=== PATIENT | male | born 1945 | race Caucasian/White ===

== ENCOUNTER → 2017-03-28 | Outpatient (CLI) | payer MEDICARE ==
[~2017-03-28] MED LIST: IOHEXOL 350 MG/ML 50ml INJECTION ONE; IOHEXOL 350 MG/ML 75ml INJECTION ONE; NORMAL SALINE 100 ML ONE; SALINE FLUSH 10ml SYRINGE ONE
[2017-03-28 13:24] LABS: CREATININE 0.9 MG/DL (0.8-1.5)
--- NOTE | 2017-03-28 14:46 | DI ---
Indication: ITS.REASON: I71.9 Aortic aneurysm of unspecified site, without rupture PROCEDURE: CTA AORTA: Encounter: Initial Comparison: None Technique: Axial CT angiographic imaging of the chest, abdomen and pelvis was performed before and after the administration of intravenous contrast. Coronal and sagittal MIP reconstructed images were created and reviewed. Three-dimensional surface shaded volume rendered imaging of the aorta and arterial vasculature was created by the technologist on a dedicated workstation under the direction of the interpreting radiologist and reviewed. Automated Exposure Control and Iterative Reconstruction dose reducing techniques were utilized. Contrast: 120 mL Omnipaque 350 Findings: CT angiogram of the chest with and without contrast: Noncontrast images show no evidence of intramural hematoma. Three vessel heavy coronary artery disease with significant plaque. Scattered small mediastinal lymph nodes present. Postcontrast imaging shows no evidence of aortic aneurysm or dissection. Maximal aortic diameter proximally is 3.4 cm. Mild dependent atelectasis in both lower lobes. No consolidative pneumonia, pleural effusion or pneumothorax. The central airways are patent. Heart size is borderline enlarged. No pericardial effusion. CT angiography of the abdomen and pelvis with and without contrast: There is no aortic dissection or aneurysm. Scattered atherosclerotic plaque throughout the arterial vasculature. No arterial occlusion identified. The celiac and SMA origins are patent without significant stenosis. Mild plaquing at the renal artery origins with mild stenosis at the left renal artery origin. Early bifurcation of the right renal artery. Hepatic arterial anatomy is conventional. Arterial phase liver is grossly unremarkable. Large inferior pole left renal cyst has slightly higher attenuation value than normal and could have proteinaceous debris within it but there is no evidence of enhancement between the noncontrast and postcontrast images. This measures up to 10.6 cm in diameter. Left kidney is otherwise normal. Right kidney is within normal limits. No abdominal or pelvic lymphadenopathy. The visualized bladder is unremarkable. No free fluid. No evidence of a bowel obstruction. Bone windows show mild degenerative change in the spine. Impression: CT angiography of the chest with and without contrast: No evidence of acute aortic syndrome or acute disease process seen. Heavy coronary artery plaque. Some of this could also relate to cardiac stents. CT angiography of the abdomen and pelvis with and without contrast: No evidence of abdominal aortic aneurysm, dissection or acute abnormality. Mild left renal artery stenosis. .
== END ==
LOC: IMA 12:55
PROVIDERS: ATTEND Internal Medicine Cardiovascular Disease
DX: I25.10 Atherosclerotic heart disease of native coronary artery without angina pectoris (principal); I71.9 Aortic aneurysm of unspecified site, without rupture
CPT/HCPCS: 71275; 74175; 82565; 84520; J7050; Q9967